=== PATIENT | female | born 1960 | race Caucasian/White ===

== ENCOUNTER → 2023-11-02 10:30 | Outpatient (REF) | payer OTHER, SELFPAY | LOC: WDC 10:30 | PROVIDERS: ATTENDING PHYSICIAN Obstetrics & Gynecology Gynecology; FAMILY PHYSICIAN Internal Medicine | DX: Z01.419 Encounter for gynecological examination (general) (routine) without abnormal findings (principal); Z78.0 Asymptomatic menopausal state; Z12.31 Encounter for screening mammogram for malignant neoplasm of breast | CPT/HCPCS: 77063; 77067; 77080 ==

== ENCOUNTER 2024-04-05 09:48 | Emergency (ER) | payer OTHER, SELFPAY ==
[2024-04-05 09:50] VITALS: BP 165/101
[2024-04-05 10:31] VITALS: BMI 26.0
[2024-04-05] MEDS: D5/0.9% SODIUM CHLORIDE 1000 IV (10:31)
[2024-04-05] MEDS: ATIVAN 1 MG IV (10:32)
[2024-04-05] MEDS: THIAMINE INJECTION 100 MG IV (10:33)
[2024-04-05 10:35] VITALS: BP 136/86
[2024-04-05 10:41] LABS: % Basophils 0.5 % (0-2); % Eosinophils 0.6 % (0-6); % Immature Granulocytes 0.3 % (0-0.5); % Lymphocytes 17.2 % (20.5-51.1); % Monocytes 10.6 % (1.7-9.3); % Neutrophils 70.8 % (42.2-75.2); Absolute Lymphocytes 1.1 10^3/uL (1.2-3.4); Absolute Monocytes 0.7 10^3/uL (0.1-0.6); Absolute Neutrophils 4.5 10^3/uL (1.4-6.5); Hemoglobin 15.2 g/dL (12.0-16.0); Mean Corp Hgb Conc. 36.2 g/dL (33.0-37.0); Mean Corpuscular Volume 102.2 fL (81.0-99.0); Mean Platelet Volume 8.5 fL (7.4-10.4); Nucleated Red Blood Cells % 0 %; Platelet Count 179 10^3/uL (130-400); Red Blood Cell Count 4.11 10^6/uL (4.20-5.40); Red Cell Dist. Width 12.6 % (11.5-14.5); White Blood Cell Count 6.3 10^3/uL (4.8-10.8)
[2024-04-05 10:51] LABS: ALT (SGPT) 26 U/L (0-35); AST (SGOT) 44 U/L (14-36); Alkaline Phosphatase 75 U/L (38-126); Blood Urea Nitrogen 7 mg/dl (7-17); Calcium 9.8 mg/dl (8.4-10.2); Carbon Dioxide 24 mmol/L (22-30); Chloride 96 mmol/L (98-107); Estimated Creatinine Clearance 86 ml/min; Glucose 142 mg/dl (70-99); Lipase 119 U/L (23-300); Potassium 4.2 mmol/L (3.5-5.1); Sodium 134 mmol/L (135-145); Total Bilirubin 1.9 mg/dl (0.2-1.3); Total Protein 7.3 g/dl (6.3-8.2); eGFR > 60.00
--- NOTE | 2024-04-05 10:51 | ED.GENMED ---
History of Present Illness
General
Chief Complaint: Alcohol Problem
Source: patient
Exam Limitations: none
Time Seen by Provider: 04/05/24 10:03
Nursing documentation reviewed up to this point in time: agreed with
History of Present Illness
History of Present Illness:
63 y/o F with h/o alcoholism
here with friend who was concerned after patient called her yesterday sounding intoxicated
the friend came down and realized how much patient has been drinking, approx 2+ bottles of wine daily and that she was spiriling and needed help
pt last had a sip of wine this mornign becaus e she was feeling anxious/shaky
but last heavier use was 6 pm las tnight
pt vomited x 1 today and has h/o p[ancreatitis in the past
she hasn't been sober for a long time, she had cut back but then increased to 2+ bottles daily about 2 months ago
she has no fever, chills, hallucinations, headache, creepy crawlies,
she is moderately anxious
Past History
Past History
ED Past Medical History: None
ED Past Surgical History: None
Social History
Tobacco: Non-smoker
Alcohol: Chronic alcoholic
Drug: None
Review of Systems
Review of Systems
Allergies reviewed?: Yes
All Other Systems: Not applicable
Phy Exam
Physical Exam
Physical Exam:
GENERAL: Alert , anxious
EYE: pupils equal and reactive
NECK: Supple
ENT: o/p clr, mmm.
CARDIAC: tachycardia, no murmur
LUNGS: Clear breath sounds bilaterally, no acute respiratory distress, no wheezes/rales/rhonchi
ABDOMEN: Soft, without focal tenderness, no r/g, no cvat, normal bowel sounds
NEUROLOGICAL: Alert and oriented, no focal neuro deficits, mild tremor
SKIN: Warm and dry, skin intact.
MUSCULOSKELETAL: No edema, well perfused. neg chantal's sign
PSYCH: moderately anxious.
Scores
Withdrawal Assessment of Alcohol
Withdrawal Assessment Completed?: Yes
Nausea and Vomiting: Mild nausea with no vomiting
Tactile Disturbances: None
Tremor: Moderate, with patient's arms extended
Auditory Disturbances: Not present
Paroxysmal Sweats: No sweat visible
Visual Disturbances: Not present
Anxiety: Moderately anxious, or guarded, so anxiety is inferred
Headache, Fullness in Head: Not present
Agitation: Normal activity
Orientation and clouding of sensorium: Oriented and can do serial additions
Total CIWA Score: 9
Alcohol Withdrawal Medication Recommendation: Equal to MSAS Score 5-7. Lorazepam 1mg IV or PO NOW & re-assess q2hrs
Course
Orders/Labs/Results
Orders:
Orders
04/05/24 10:12
Thiamine Injection 100 mg IV NOW STA
04/05/24 10:22
Lorazepam [Ativan] 1 mg IV NOW STA
04/05/24 10:24
Alcohol Urgent
Complete Blood Count/With Diff Urgent
Comprehensive Metabolic Panel Urgent
Lipase Urgent
04/05/24 10:48
Urinalysis Reflex To Culture Urgent
Date Specimen was Collected: 04/05/24
Time Specimen was Collected: 10:41
Urine Microscopic Reflex Cult Urgent
04/05/24 11:00
Dextrose 5%/0.9%Sodchl 1000 ml [D5/0.9% Sodium Chloride] 1,000 ml IV Wide Open mls/hr
04/05/24 12:19
Lorazepam [Ativan] 1 mg .ROUTE .STK-MED ONE
Lorazepam [Ativan] 1 mg PO NOW STA
Abnormal Lab Results
04/05/24 04/05/24
10:24 10:48
RBC 4.11 L 10^6/uL
(4.20-5.40)
MCV 102.2 H fL
(81.0-99.0)
MCH 37.0 H pg
(27.0-31.0)
Absolute Lymphs (auto) 1.1 L 10^3/uL
(1.2-3.4)
Absolute Monos (auto) 0.7 H 10^3/uL
(0.1-0.6)
Lymphocytes % 17.2 L %
(20.5-51.1)
Monocytes % 10.6 H %
(1.7-9.3)
Sodium 134 L mmol/L
(135-145)
Chloride 96 L mmol/L
(98-107)
Glucose 142 H mg/dl
(70-99)
Total Bilirubin 1.9 H mg/dl
(0.2-1.3)
AST 44 H U/L
(14-36)
Leukocyte Esterase Rfl Trace A
(Negative)
Urine Bacteria (Reflex) Few A
(Negative)
04/05/24 10:24
04/05/24 10:24
Vital Signs
Initial and Last Documented VS:
Initial Vital Signs
Temp Pulse Resp BP Pulse Ox
98.3 F 110 22 165/101 99
04/05/24 09:50 04/05/24 09:50 04/05/24 09:50 04/05/24 09:50 04/05/24 09:50
Last Documented Vital Signs
Temp Pulse Resp BP Pulse Ox
98.3 F 86 14 116/75 94
04/05/24 09:50 04/05/24 12:00 04/05/24 12:00 04/05/24 12:00 04/05/24 12:00
MDM/Problems Addressed
Differential Diagnosis Includes:
alcohol withdrawal, pancreaitis, electrolyte disturbance
MDM/Problems Addressed:
63-year-old chronic alcoholic presents for requesting help with her alcoholism. She last had heavier drinking yesterday in the evening and only had a sip this morning after she vomited some yogurt she ate. She is feeling quite shaky. She is
anxious in general. She is here with a friend who is a very good support system for her. She has had a lot of emotional stress over the last year. Patient reports she does want to quit drinking. On exam she was minimally tachycardic on arrival
but significantly improved after fluids and Ativan. Her anxiety was also improved she had a CIWA score of 9. Patient workup here shows that her electrolytes are very stable, she has minimal elevation of her bilirubin, no abdominal tenderness, no
persistent vomiting. She received a liter of D5 normal, thiamine 100 mg and 1 IV of Ativan and 1 p.o. on discharge. She was seen by Ramona malave and declined inpatient detox but would like to try to detox at home. Her friend also went through alcohol
detox and will stay with her. She consented to a Librium taper and is aware of the risks of using alcohol while on Librium.
Return precautions given
Discussed with ED attending Dr. Peterson
*Critical Care Note
Total Time (30-74mins, 75-104mins- exclusive of procedures): Not Applicable
ED Attending Note
-
Portions of this chart may have been created with voice recognition software.� Occasional wrong word or��sound alike� substitutions may have occurred due to the inherent limitations of voice recognition software.
Discharge Plan
Departure
Patient Disposition: Home (Routine Discharge)
Date of Disposition: 04/05/24
Time of Disposition: 12:05
Patient with high blood pressure during this ER visit?: No
Condition: Fair
Covid-19: Not Applicable
Discharge Problem:
Alcoholism
Instructions: Alcohol Withdrawal (DC)
Prescriptions:
New
chlordiazepoxide HCl 25 mg capsule
See Rx Instructions .ROUTE .COMPLEX Qty: 20 0RF
Rx Instructions:
day1 50 mg po q6hr, day 2 50 mg q8 hr, day3 50mg poq12 hr, day4 50 mg po hs
folic acid 1 mg tablet
1 mg PO DAILY Qty: 14 0RF
thiamine HCl (vitamin B1) 100 mg tablet
100 mg PO DAILY Qty: 14 0RF
Referrals:
Judy North NP [Family Provider] - Follow up in 2-3 days
Activity Restrictions/Additional Instructions:
You are being treated for alcohol withdrawal. You need to try this medication taper to help your symptoms. It is absolutely contraindicated to use alcohol while you are on this medication, it can cause excessive sleepiness and potentially cause
you to stop breathing. You should use the medication as prescribed which is
50 mg (2 caps) every 6 hours today
50 mg (2 caps) every 8 hours tuesday
50 mg (2 caps) every 12 hours tuesday
50 mg (2 caps) at night tuesday
follow up with outpatient resources for your alcohol addiction
return fo rnay concerns.
Interventions
Interventions:
*Risk Screen - Suicide Last Done: 04/05/24 09:50
*General Assessment Last Done: 04/05/24 09:50
*Neglect/Abuse Screening Last Done: 04/05/24 09:50
ED- Fall Risk Assessment Last Done: 04/05/24 12:34
*ED COVID-19 Vaccine History Last Done: 04/05/24 12:34
*Nursing Disposition Last Done: 04/05/24 12:34
ED- Neurological Assessment Last Done: 04/05/24 12:34
ED-Psychological Assessment Last Done: 04/05/24 12:34
Discharge Date and Time
Discharge Date/Time: 04/05/24 12:35
Print Language: EGYPTIAN
[2024-04-05 10:52] LABS: Alcohol None Detected
[2024-04-05 11:00] VITALS: BP 129/74
[2024-04-05 11:10] LABS: Urine Albumin Negative (Neg - Trace); Urine Bilirubin Negative (Negative); Urine Character Clear (Clear); Urine Color Yellow; Urine Glucose Negative (Negative); Urine Ketone Negative (Negative); Urine Leukocyte Trace (Negative); Urine Nitrite Negative (Negative); Urine Occult Blood Negative (Negative); Urine Specific Gravity 1.015 (<1.030); Urine Urobilinogen Negative (Neg - 1+)
[2024-04-05 11:15] LABS: Urine Bacteria Few (Negative); Urine Red Blood Cell 0-2 /HPF (0-2)
[2024-04-05 12:00] VITALS: BP 116/75
[2024-04-05] MEDS: ATIVAN 1 MG PO (12:20)
== END 2024-04-05 12:35 | disposition home or self-care (01) ==
LOC: EMR 09:48
PROVIDERS: Physician Assistant; EMERGENCY PHYSICIAN Emergency Medicine; FAMILY PHYSICIAN Internal Medicine
DX: F10.20 Alcohol dependence, uncomplicated (principal)
CPT/HCPCS: 99284; 96374; 96375; 96361; 80053; 81003; 81015; 82077; 83690; 85025

== ENCOUNTER → 2024-11-08 13:59 | Outpatient (REF) | payer OTHER, SELFPAY | LOC: WDC 13:59 | PROVIDERS: ATTENDING PHYSICIAN Obstetrics & Gynecology Gynecology; FAMILY PHYSICIAN Internal Medicine | DX: Z12.39 Encounter for other screening for malignant neoplasm of breast (principal); Z12.31 Encounter for screening mammogram for malignant neoplasm of breast | CPT/HCPCS: 77063; 77067 ==